=== PATIENT | female | born 1945 | race Caucasian/White ===

== ENCOUNTER → 2016-03-07 | Outpatient (CLI) | payer OTHER ==
[~2016-03-07] MED LIST: ALPR-411 PO; ASPI81TA28 PO; CALC-20 PO; CYCL0.052 OPB; IPRA1AER2 INH; LEVO50TA6 PO; LEVO75TA5 PO; LIDOCAINE HCL 2% 2 ML VIAL (20MG/ML) ONE; LSN40 PO; MIDAZOLAM HCL 1 MG/ML 2ML VIAL ONE; MULT-614 PO; ONDANSETRON INJ 2 MG/ML 2 ML VIAL ONE; PRLSR20 PO; PROPOFOL IV EMULSION 10 MG/ML 20 ML VIAL IV ONE; SYMIN160 INH
--- NOTE | 2016-03-07 08:10 | DIAGNOSTIC IMAGING REPORT ---
GI SERIES W/AIR ROUTINE CLINICAL HISTORY: Chest and abdominal pain. Reflux. COMPARISON STUDY: None FLUOROSCOPY TIME: 2.8 minutes. 22 fluoroscopic spot images were acquired.. FINDINGS: The patient swallowed effervescent granules and barium without difficulty. No esophageal or gastric masses were visualized. No ulcerations are visualized. There is mild prominence of the area gastricae. The duodenal bulb appeared normal. Ligament Treitz was located in the normal anatomical position. Moderate gastroesophageal reflux was demonstrated. IMPRESSION: Gastroesophageal reflux. Otherwise normal study. No masses or ulcerations were visualized. Electronically signed by: Aamir Gandhi M.D. 03/07/2016 8:09 AM Dictated Date/Time: 03/07/2016 8:07 AM
--- NOTE | 2016-03-07 08:58 | DIAGNOSTIC IMAGING REPORT ---
THYROID ULTRASOUND CLINICAL HISTORY: Odynophagia. COMPARISON STUDY: None TECHNIQUE: Sonography of the thyroid gland was performed. FINDINGS: The right thyroid lobe measures 3.9 x 1.2 x 1.2 cm and the left lobe measures 3.7 x 1 x 1.1 cm. The gland is heterogeneous and slightly small. A 5 mm echogenic right lobe nodule is present. IMPRESSION: 1. 5 mm echogenic right lobe nodule. This does not meet criteria for biopsy. 2. Small heterogeneous thyroid gland. Electronically signed by: Mike Rios M.D. 03/07/2016 8:56 AM Dictated Date/Time: 03/07/2016 8:54 AM
== END | disposition home or self-care (01) ==
LOC: C.RAD 07:28
PROVIDERS: ATTEND Internal Medicine
DX: R13.10 Dysphagia, unspecified (principal); K21.9 Gastro-esophageal reflux disease without esophagitis; E04.1 Nontoxic single thyroid nodule

== ENCOUNTER → 2016-03-28 | Day surgery (SDC) | payer OTHER ==
[2016-03-27 08:50] VITALS: BMI 19.0
[~2016-03-28] VITALS: Ht 160 cm; Wt 50.9 kg
[~2016-03-28] MED LIST changes: -LIDOCAINE HCL 2% 2 ML VIAL (20MG/ML) ONE; -MIDAZOLAM HCL 1 MG/ML 2ML VIAL ONE; -ONDANSETRON INJ 2 MG/ML 2 ML VIAL ONE; -PROPOFOL IV EMULSION 10 MG/ML 20 ML VIAL IV ONE; +SODIUM CHLORIDE 0.9% 500ML 500 ML IV ONE
[2016-03-28 10:25] VITALS: Ht 160 cm; Wt 50.9 kg
--- NOTE | 2016-03-28 11:02 | Endo History and Physical ---
History & Physical Date of Service: Mar 28, 2016. Chief Complaint: DYSPAGIA, HX OF ESOPHAGEAL REFUX Referring Physician: DR. JATIN BOLES History of Present Illness 70 yo CF who presents for EGD secondary to dysphagia and history of GERD. Past Medical History Arthritis, Pacemaker, Asthma, Pulmonary Emboli, Anxiety, Hypertension, COPD, Thyroid Disease Past Surgical History Hx Cardiac Surgery: No Hx Internal Defibrillator: No Hx Pacemaker: Yes ([facility] - 2009 AND BATTERIES REPLACED 09/2015) Hx Abdominal Surgery: No Hx of Implantable Prosthesis: No Hx Post-Op Nausea and Vomiting: No Hx Cancer Surgery: No Hx Thoracic Surgery: No Hx Orthopedic: Yes ([facility]) Hx Urinary Tract Surgery: No Family History None Social History Smoking Status: Never Smoker Hx Substance Use: No Hx Alcohol Use: No Allergies Coded Allergies: Adhesives (Verified Allergy, Unknown, RASH, 03/27/16) Latex1 -Allergic Contact Dermititis (Verified Allergy, Unknown, ITCHING, ) Penicillins (Verified Allergy, Unknown, UNKNOWN - HAPPENED A CHILD, 03/27) Current Medications Reported Home Medications Medications Dose Route/Sig Max Daily Dose Days Date Category Prilosec (Omeprazole) 20 Mg Capcr 20 Mg PO BID 03/27/16 Reported Levothyroxine Sodium 50 Mcg Tab 1 Tab PO Q2D 03/27/16 Reported Lisinopril 40 Mg Tab 40 Mg PO QAM 08/09/15 Reported Combivent Respimat (Ipratropium-Albuterol) 1 Aer Aer 1 Puff INH QID PRN 08/09/15 Reported Symbicort 160/4.5 Inhaler (Budesonide/Formoterol Fumarate) 120 Puffs/ Aero 1 Puff INH BID 08/09/15 Reported Alprazolam 0.5 Mg Tab 0.5 Mg PO HS 08/09/15 Reported Restasis (Cyclosporine (Ophth)) 0.05 % Emu 1 Drop OPB HS 08/09/15 Reported Centrum Silver Ultra Wome (Multiple Vitamins W/ Minerals) 1 Tab Tab 1 Tab PO QAM 03/22/15 Reported Calcium 600 + D (Calcium Carbonate-Vitamin D) 1 Tab Tab 1 Tab PO QAM 03/22/15 Reported Aspirin Ec (Aspirin) 81 Mg Tab 81 Mg PO QAM 03/22/15 Reported Levothyroxine Sodium 75 Mcg Tab 75 Mcg PO Q2D 03/22/15 Reported Vital Signs Weight (Kilograms): 50.91 Height (Feet): 5 Height (Inches): 3 Date Time Temp Pulse Resp B/P Pulse Ox O2 Delivery O2 Flow Rate FiO2 03/28/16 10:36 36.4 62 20 166/68 Room Air Physical Exam General Appearance: WD/WN, no apparent distress Respiratory/Chest: Auscultation: breath sounds normal Cardiovascular: Heart Auscultation: RRR Abdomen: Bowel Sounds: normal Inspection & Palpation: soft, non-distended, no tenderness, guarding & rebound Assessment and Plan Assessment: 70 yo CF who presents for EGD secondary to dysphagia and history of GERD. Plan: Proceed with EGD.
--- NOTE | 2016-03-28 11:54 | GI REPORT ---
Procedure Date: 03/28/2016 11:02 AM Procedure: Upper GI endoscopy Indications: Dysphagia, Gastro-esophageal reflux disease Medicines: Monitored Anesthesia Care Complications: No immediate complications. Estimated Blood Loss: Estimated blood loss: none. Procedure: Pre-Anesthesia Assessment: - Prior to the procedure, a History and Physical was performed, and patient medications and allergies were reviewed. The patient's tolerance of previous anesthesia was also reviewed. The risks and benefits of the procedure and the sedation options and risks were discussed with the patient. All questions were answered, and informed consent was obtained. Prior Anticoagulants: The patient has taken aspirin, last dose was day of procedure. ASA Grade Assessment: III - A patient with severe systemic disease. After reviewing the risks and benefits, the patient was deemed in satisfactory condition to undergo the procedure. After obtaining informed consent, the endoscope was passed under direct vision. Throughout the procedure, the patient's blood pressure, pulse, and oxygen saturations were monitored continuously. The scope was introduced through the mouth, and advanced to the second part of duodenum. The upper GI endoscopy was accomplished without difficulty. The patient tolerated the procedure well. Findings: No endoscopic abnormality was evident in the esophagus to explain the patient's complaint of dysphagia. The stomach was normal. The examined duodenum was normal. Impression: - No endoscopic esophageal abnormality to explain patient's dysphagia. - Normal stomach. - Normal examined duodenum. - No specimens collected. Recommendation: - Resume previous diet. - Continue present medications. - Perform routine esophageal manometry at appointment to be scheduled. - Return to GI clinic as previously scheduled. Jules Gusman DO 03/28/2016 11:54:12 AM This report has been signed electronically. Note Initiated On: 03/28/2016 11:02 AM I attest to the content of the Intraoperative Record and orders documented therein, exceptions below
--- NOTE | 2016-03-28 11:59 | Discharge Instructions ---
Endoscopy Patient Instructions Date / Procedure(s) Performed Mar 28, 2016. EGD Allergy Information Coded Allergies: Adhesives (Verified Allergy, Unknown, RASH, 03/28/16) Latex1 -Allergic Contact Dermititis (Verified Allergy, Unknown, ITCHING, ) Penicillins (Verified Allergy, Unknown, UNKNOWN - HAPPENED A CHILD, 03/28) Discharge Date / Findings Mar 28, 2016. Normal EGD Medication Instructions Stopped Medication(s): vitamins OK to resume all medications today as prescribed Reported Home Medications Medications Dose Route/Sig Max Daily Dose Days Date Category Prilosec (Omeprazole) 20 Mg Capcr 20 Mg PO BID 03/27/16 Reported Levothyroxine Sodium 50 Mcg Tab 1 Tab PO Q2D 03/27/16 Reported Lisinopril 40 Mg Tab 40 Mg PO QAM 08/09/15 Reported Combivent Respimat (Ipratropium-Albuterol) 1 Aer Aer 1 Puff INH QID PRN 08/09/15 Reported Symbicort 160/4.5 Inhaler (Budesonide/Formoterol Fumarate) 120 Puffs/ Aero 1 Puff INH BID 08/09/15 Reported Alprazolam 0.5 Mg Tab 0.5 Mg PO HS 08/09/15 Reported Restasis (Cyclosporine (Ophth)) 0.05 % Emu 1 Drop OPB HS 08/09/15 Reported Centrum Silver Ultra Wome (Multiple Vitamins W/ Minerals) 1 Tab Tab 1 Tab PO QAM 03/22/15 Reported Calcium 600 + D (Calcium Carbonate-Vitamin D) 1 Tab Tab 1 Tab PO QAM 03/22/15 Reported Aspirin Ec (Aspirin) 81 Mg Tab 81 Mg PO QAM 03/22/15 Reported Levothyroxine Sodium 75 Mcg Tab 75 Mcg PO Q2D 03/22/15 Reported Provider Instructions Activity Restrictions - No exercising or heavy lifting for 24 hours. - Do not drink alcohol the day of the procedure. - Do not drive a car or operate machinery until the day after the procedure. - Do not make any important decisions or sign important papers in 24 hours after the procedure. Following Day: - Return to full activity which may include returning to work/school. Diet Start your diet with liquids and light foods (jello, soup, juice, toast). Then eat your usual diet if not nauseated. Treatment For Common After Affects For mild abdominal pain, bloating, or excessive gas: - Rest - Eat lightly - Lie on right side Contact our office if you wish to proceed with esophageal manometry testing. Follow-Up Information Follow-up with DR. JATIN BOLES as scheduled Anesthesia Information What You Should Know You have had a procedure that required some medicine to reduce anxiety and discomfort. This treatment is called moderate sedation. After receiving the treatment, you may be sleepy, but you will be able to breathe on your own. The effects of the treatment may last for several hours. Follow these instructions along with Activity/Diet recommendations noted above: * Do NOT do anything where dizziness or clumsiness would be dangerous. * Rest quietly at home today, then you can be up and about tomorrow. * Have a responsible person stay with you the rest of today. * You may have had an I.V. today. If so, you may take the dressing off later today. Recommendations Call your doctor if: * Trouble breathing * Continuous vomiting for more than 24 hours * Temperature above 101 degrees * Severe abdominal pain or bloating * Pain not relieved by pain medicine ordered * There is increased drainage or redness from any incision * A large amount of rectal bleeding greater than 2-3 tablespoons. (If you had a polyp/s removed or have hemorrhoids, a small amount of blood - from the rectum is to be expected.) * You have any unanswered questions or concerns. IN THE EVENT OF A SERIOUS EMERGENCY, GO TO THE NEAREST EMERGENCY ROOM Your discharge instructions were prepared by provider Jules Gusman. Patient Instructions Signature Page Tasha Dia Patient (or Guardian) Signature/Date: I have read and understand the instructions given to me by my caregivers. Caregiver/RN/Doctor Signature/Date: The above-named patient and/or guardian has received patient instructions on this date. + Original Patient Signature Page (only) stays with chart. Please make copy for patient.
[2016-03-28 12:10] VITALS: BP 119/70; PULSE 74; O2SAT 98
--- NOTE | 2016-03-28 14:04 | Anesthesiology Progress Note ---
Anesthesia Post Op Note Date & Time Mar 28, 2016 at 14:04 Vital Signs Pain Intensity: 0 Vital Signs Past 12 Hours Date Time Temp Pulse Resp B/P Pulse Ox O2 Delivery O2 Flow Rate FiO2 03/28/16 12:10 74 16 119/70 98 Room Air 03/28/16 11:50 74 16 128/68 99 Room Air 03/28/16 11:35 72 16 128/65 99 Room Air 03/28/16 11:20 16 105/51 96 Room Air 03/28/16 10:36 36.4 62 20 166/68 Room Air Notes Mental Status: alert / awake / arousable Pt Amnestic to Procedure: Yes Nausea / Vomiting: adequately controlled Pain: adequately controlled Airway Patency, RR, SpO2: stable & adequate BP & HR: stable & adequate Hydration State: stable & adequate Anesthetic Complications: no major complications apparent
== END | disposition home or self-care (01) ==
LOC: C.GI 10:09
PROVIDERS: ATTEND Internal Medicine
DX: R13.10 Dysphagia, unspecified (principal); K21.9 Gastro-esophageal reflux disease without esophagitis; J44.9 Chronic obstructive pulmonary disease, unspecified; I10 Essential (primary) hypertension; Z95.0 Presence of cardiac pacemaker; E07.9 Disorder of thyroid, unspecified; Z86.711 Personal history of pulmonary embolism

== ENCOUNTER → 2016-04-09 | Outpatient (CLI) | payer OTHER ==
[~2016-04-09] MED LIST changes: -SODIUM CHLORIDE 0.9% 500ML 500 ML IV ONE
== END | disposition home or self-care (01) ==
LOC: C.LABPBG 08:24
PROVIDERS: ATTEND Internal Medicine
DX: E03.9 Hypothyroidism, unspecified (principal); Z11.59 Encounter for screening for other viral diseases

== ENCOUNTER → 2016-08-20 | Outpatient (CLI) | payer OTHER ==
[2016-08-20 12:18] LABS: BASO % 0.6 %; BASO ABS # 0.03 K/uL (0-0.2); COMPLETE YES; HEMATOCRIT 40.7 % (37-47); LYMPH % 25.1 %; LYMPH ABS # 1.32 K/uL (1.2-3.4); MEAN CELL VOLUME 98.1 fL (80-100); MEAN CORPUSCULAR HEMOGLOBIN 32.5 pg (25-34); MEAN CORPUSCULAR HGB CONC 33.2 g/dl (32-36); MONO % 8.2 %; NEUT % 59.1 %; PLATELET COUNT 179 K/uL (130-400); RED BLOOD COUNT 4.15 M/uL (4.2-5.4); WHITE BLOOD COUNT 5.25 K/uL (4.8-10.8)
[2016-08-20 13:14] LABS: ALT/SGPT 27 U/L (12-78); AST/SGOT 29 U/L (15-37); BLOOD UREA NITROGEN 18 mg/dl (7-18); BUN/CREATININE RATIO 23.4 (10-20); CALCIUM 9.8 mg/dl (8.5-10.1); CARBON DIOXIDE 31 mmol/L (21-32); CHLORIDE 105 mmol/L (98-107); CREATININE 0.77 mg/dl (0.60-1.20); GLUCOSE 75 mg/dl (70-99); POTASSIUM 3.8 mmol/L (3.5-5.1); SODIUM 140 mmol/L (136-145)
[2016-08-20 13:24] LABS: ALB/GLOB RATIO 1.4 (0.9-2); ALKALINE PHOSPHATASE 73 U/L (45-117)
[2016-08-20 13:55] LABS: LYME DISEASE AB IGG NEG (NEG); LYME DISEASE AB IGM NEG (NEG)
--- NOTE | 2016-08-28 09:01 | CODING QUERY MEDICAL NECESSITY ---
CQSUPPORTING DIAGNOSIS NEEDED A supporting diagnosis is required for the test/procedure performed on this patient in order for us to be reimbursed by the patient's insurance. Please provide a supporting diagnosis for the following test/procedure listed below next to the test name along with your signature. *If there is no additional diagnosis for this patient that would support the following test/procedure please document that below next to the test/procedure. Test(s)/Procedure(s) that require a supporting diagnosis: DOS 08/20/16 VITAMIN D TEST BLOOD COUNT TEST THYROID TEST Provider Signature: Date: Thank you Paula Jacob Health Information Management Once completed, please kindly fax back to [phone] For questions please call [phone]
== END | disposition home or self-care (01) ==
LOC: C.LABPBG 09:01
PROVIDERS: ATTEND Internal Medicine
DX: Z95.0 Presence of cardiac pacemaker (principal); E03.9 Hypothyroidism, unspecified; R10.10 Upper abdominal pain, unspecified; Z13.21 Encounter for screening for nutritional disorder

== ENCOUNTER → 2016-11-13 | Outpatient (CLI) | payer OTHER ==
[2016-11-13 12:14] LABS: BLOOD UREA NITROGEN 12 mg/dl (7-18); BUN/CREATININE RATIO 15.8 (10-20); CALCIUM 9.9 mg/dl (8.5-10.1); CARBON DIOXIDE 27 mmol/L (21-32); CHLORIDE 106 mmol/L (98-107); CREATININE 0.73 mg/dl (0.60-1.20); GLUCOSE 80 mg/dl (70-99); POTASSIUM 4.1 mmol/L (3.5-5.1); SODIUM 141 mmol/L (136-145)
[2016-11-13 12:17] LABS: BASO % 0.5 %; BASO ABS # 0.03 K/uL (0-0.2); COMPLETE YES; EOS % 5.7 %; HEMATOCRIT 38.9 % (37-47); IG% 0.2 %; LYMPH % 17.7 %; MEAN CELL VOLUME 97.3 fL (80-100); MEAN CORPUSCULAR HEMOGLOBIN 32.8 pg (25-34); MEAN CORPUSCULAR HGB CONC 33.7 g/dl (32-36); MEAN PLATELET VOLUME 10.9 fL (7.4-10.4); MONO % 7.3 %; NEUT % 68.6 %; PLATELET COUNT 180 K/uL (130-400); WHITE BLOOD COUNT 5.64 K/uL (4.8-10.8)
[2016-11-13 20:12] LABS: LYME DISEASE AB IGG NEG (NEG); LYME DISEASE AB IGM NEG (NEG)
== END | disposition home or self-care (01) ==
LOC: C.LABPBG 10:32
PROVIDERS: ATTEND Family Medicine
DX: R21 Rash and other nonspecific skin eruption (principal); I10 Essential (primary) hypertension

== ENCOUNTER → 2017-03-05 | Outpatient (CLI) | payer OTHER | END | disposition home or self-care (01) | LOC: C.LABSPEC 13:31 | PROVIDERS: ATTEND Family Medicine | DX: R10.9 Unspecified abdominal pain (principal) ==

== ENCOUNTER → 2017-04-01 | Outpatient (CLI) | payer OTHER ==
[2017-04-01 17:50] LABS: BASO % 0.6 %; BASO ABS # 0.03 K/uL (0-0.2); EOS ABS # 0.28 K/uL (0-0.5); HEMATOCRIT 40.2 % (37-47); HEMOGLOBIN 13.2 g/dL (12.0-16.0); LYMPH % 24.8 %; LYMPH ABS # 1.15 K/uL (1.2-3.4); MEAN CELL VOLUME 99.3 fL (80-100); MEAN CORPUSCULAR HEMOGLOBIN 32.6 pg (25-34); MEAN CORPUSCULAR HGB CONC 32.8 g/dl (32-36); MEAN PLATELET VOLUME 11.1 fL (7.4-10.4); MONO % 8.9 %; MONO ABS # 0.41 K/uL (0.11-0.59); NEUT % 59.7 %; NEUT ABS # 2.76 K/uL (1.4-6.5); PLATELET COUNT 174 K/uL (130-400); RED CELL DISTRIBUTION WIDTH CV 12.6 % (11.5-14.5); RED CELL DISTRIBUTION WIDTH SD 46.1 fL (36.4-46.3); WHITE BLOOD COUNT 4.63 K/uL (4.8-10.8)
[2017-04-01 18:03] LABS: ALBUMIN 3.9 gm/dl (3.4-5.0); ALT/SGPT 30 U/L (12-78); AST/SGOT 27 U/L (15-37); BLOOD UREA NITROGEN 19 mg/dl (7-18); CALCIUM 9.3 mg/dl (8.5-10.1); CARBON DIOXIDE 28 mmol/L (21-32); CREATININE 0.74 mg/dl (0.60-1.20); GLUCOSE 88 mg/dl (70-99); POTASSIUM 3.8 mmol/L (3.5-5.1); SODIUM 141 mmol/L (136-145)
[2017-04-01 18:14] LABS: ALKALINE PHOSPHATASE 77 U/L (45-117); TOTAL PROTEIN 7.1 gm/dl (6.4-8.2)
== END | disposition home or self-care (01) ==
LOC: C.LABPBG 12:02
PROVIDERS: ATTEND Internal Medicine
DX: I49.5 Sick sinus syndrome (principal); I10 Essential (primary) hypertension; E03.9 Hypothyroidism, unspecified; J45.909 Unspecified asthma, uncomplicated; M79.1 Myalgia

== ENCOUNTER → 2017-07-04 | Outpatient (CLI) | payer OTHER ==
--- NOTE | 2017-07-04 12:27 | DIAGNOSTIC IMAGING REPORT ---
CERVICAL SPINE 2 OR 3 VIEWS CLINICAL HISTORY: 71 years-old Female presenting with M54.2 Neck [id number], left neck pain. TECHNIQUE: Frontal, lateral, and open-mouth odontoid views of the cervical spine were obtained. COMPARISON: None. FINDINGS: Normal cervical lordosis. Vertebral bodies maintain normal height and alignment. The C7 vertebral body is fully visualized. Mild intervertebral disc height loss at C5-6, where there is the greatest degree of degenerative change. A disc osteophyte complex at this level results in posterior bony spurring mildly narrowing the spinal canal. No scoliosis. No radiographic evidence of a compression deformity or subluxation. Normal predental interval. Lateral masses of C1 articulate normally with C2. No prevertebral soft tissue swelling. Partially visualized cardiac leads. Lung apices clear. The patient is edentulous. IMPRESSION: 1. No radiographic evidence of acute osseous injury. 2. Mild degenerative changes. Electronically signed by: Allen Bartlett M.D. 07/04/2017 12:26 PM Dictated Date/Time: 07/04/2017 12:24 PM
== END | disposition home or self-care (01) ==
LOC: C.RAD 11:42
PROVIDERS: ATTEND Family Medicine
DX: M54.2 Cervicalgia (principal)

== ENCOUNTER 2023-04-02 22:13 | Inpatient (IN) ==
--- NOTE | 2023-04-02 23:05 | Emergency Department Note ---
Impression & Plan Pneumonia DC ED Provider Note HPI: History obtained from patient The patient is a 77-year-old female with history of paroxysmal atrial fibrillation, sick sinus syndrome status post pacemaker placement, COPD, presents to the emergency department after mechanical fall. Patient states this evening she was trying to get up from her chair when she was watching TV at home and she fell while she was trying to get up. Patient states she fell on her buttocks. Patient states she was unable to get up off the floor secondary to her history of arthritis and knee pain and therefore her brother contacted EMS and the patient was transported to the ED. Patient states earlier tonight she did mention to EMS that she also had some chest pain. Patient states she does not currently have any chest pain. Patient states she has recently had some generalized weakness and a sore throat over the past 2 to 3 weeks and was concerned that she might have influenza. On arrival here to the ED the patient is otherwise hemodynamically stable, she is in no acute distress on my initial assessment. ROS: - Per HPI Differential Diagnosis: Mechanical fall, sacral contusion, sacral fracture, hip fracture, pelvic fracture, acute coronary syndrome, pneumonia, viral upper respiratory infection, amongst other potential pathologies. *Outpatient medications and allergy history reviewed. PE: General: Alert, frail-appearing, no acute distress HEENT: Normocephalic, trachea midline Eyes: Extraocular eye movement is intact, no scleral erythema Pulmonary: Clear to auscultation bilaterally, no wheezing Cardio: Regular rate and rhythm GI: Abdomen is soft to palpation : No suprapubic tenderness MSK: No evidence of trauma or malformation of the extremities, no edema Skin: No evidence of rash Neuro: Alert, no focal deficits Psychiatric: Cooperative INDEPENDENT INTERPRETATIONS: conveyor monitor: (As interpreted by myself): - An order was placed for continuous cardiac monitoring - Patient was noted to be in sinus rhythm with a rate of 80 EKG: (As interpreted by myself): Rate: 84 Rhythm: Sinus rhythm Intervals: Within normal limits ST changes: No ST elevation Time: 2219 Chest x-ray: (As interpreted by myself): Right lower lobe infiltrate Interventions provided in ED: -IV cefepime, IV azithromycin Medical Decision Making: IV was established and lab work obtained, patient was placed on director of cardiac rehabilitation. Lab work shows a leukocytosis at 17.08, hemoglobin is stable at 11.9, platelet count is normal, CMP does not show any critical findings, mild hyponatremia at 133, troponin is slightly elevated at 14.2. EKG per my interpretation does not show any evidence of any acute ischemic changes. Viral panel testing including COVID, influenza, and RSV are all negative. Chest x-ray per my interpretation shows a right lower lobe pneumonia. X-ray of the bilateral hips does not show any evidence of obvious pelvic fracture or hip fracture per my interpretation. On my reassessment the patient is hemodynamically stable, states she has had weakness recently and had a fall today. Given her significant leukocytosis, and finding of large right lower lobe pneumonia on chest x-ray, I do feel she would benefit from admission for initiation of IV antibiotics. Given this blood cultures were drawn, patient was started on cefepime and azithromycin. I did discuss the patient's presentation with the on-call hospitalist, Dr. Walker, and the patient was placed for admission in stable condition. Consultants/Discussions held with other healthcare providers: -Hospitalist, Dr. Walker Disposition discussion held by myself with: -Patient and patient's niece at the bedside Diagnosis: 1. Pneumonia, right lower lobe, acute 2. Leukocytosis, acute 3. Generalized weakness, acute 4. Mechanical fall, acute 5. Chest pain, acute, nonspecific 6. Elevated high-sensitivity troponin level Disposition: Admission Magdiel Collins DO Emergency Medicine Past Med/Surg History Medical History (Updated 04/03/23 @ 01:32 by Magdiel Collins DO) Osteoporosis GERD (gastroesophageal reflux disease) Celiac disease History of pulmonary embolus (PE) post PPM placement in 2009, treated coumadin x 12 mos Paroxysmal atrial fibrillation by pacer check Sick sinus syndrome Kyphosis of thoracic region Hypothyroidism Hypertension Chronic insomnia Asthma, severe persistent Anxiety Allergic rhinitis COPD (chronic obstructive pulmonary disease) Surgical History S/P bronchoscopy with biopsy S/P nasal surgery History of left hip replacement History of esophagogastroduodenoscopy (EGD) History of pacemaker (2009) 2009 History of bilateral carotid endarterectomy Family History Mother Myocardial infarction Sister Myocardial infarction Family/Other Breast cancer Denies family history of Ovarian cancer Prostate cancer Lung cancer Colorectal cancer Social History (Reviewed 03/25/23 @ 09:26 by DIAMOND Piedra Smoking Status: Never smoker Second Hand Exposure: No; Do You Dip or Chew Tobacco: No; Hx Alcohol Use: No Hx Substance Use: No Preferred Language: Afghan Communication Ability: Effective Visual Impairment: Limited Hearing Ability: Hard of Hearing Opener [employer] Required: No Beliefs That Will Affect Care: None marital status: single Current Living Situation: Family Current Living Situation Comment: Brother current occupational status: retired How many Children do You have: 0 Feels Safe at Home: Yes Childhood Exposure to Second-Hand Smoke: Yes Diet: regular Diet Comment: regular caffeine: Yes (tea) during the past year weight has: remained stable Dental Care, Regularly: Yes Physical Activity Frequency: Does not Exercise Seatbelt Use: always Sunscreen Use: Yes Allergies Allergies Allergy/AdvReac Type Severity Reaction Status Date / Time adhesive Allergy Intermediate RASH Verified 04/02/23 23:16 latex Allergy Intermediate ITCHING Verified 04/02/23 23:16 alprazolam Allergy Unknown CAN'T Verified 04/02/23 23:16 REMEMBER Cephalosporins Allergy Unknown CAN'T Verified 04/02/23 23:16 REMEMBER ciprofloxacin Allergy Unknown CAN'T Verified 04/02/23 23:16 REMEMBER Penicillins Allergy Unknown UNKNOWN - Verified 04/02/23 23:16 HAPPENED A CHILD sulfamethoxazole Allergy Unknown CAN'T Verified 04/02/23 23:16 [From Bactrim] REMEMBER trimethoprim [From Bactrim] Allergy Unknown CAN'T Verified 04/02/23 23:16 REMEMBER metoprolol AdvReac Intermediate BRADYCARDIA Verified 04/02/23 23:16 Home Meds Home Medications Medication Instructions Recorded Confirmed aspirin 81 mg tablet,delayed 81 mg PO QAM 10/12/18 04/02/23 release tiotropium bromide 18 mcg capsule 1 cap inhalation DAILY 02/21/22 04/02/23 with inhalation device (Spiriva with HandiHaler) calcium carbonate 600 mg calcium 600 mg PO Q OTHER DAY 07/06/22 04/02/23 (1,500 mg) tablet [id number] 8 mg-folic 400 1 tab PO Q OTHER DAY 07/06/22 04/02/23 mcg-K 50 mcg-lutein 300 mcg tablet (Centrum Silver Women) brimonidine 0.15 % eye drops 1 drp ophthalmic (eye) TID 02/07/23 04/02/23 fluticasone furoate 100 1 inh inhalation DAILY 02/07/23 04/02/23 mcg-vilanterol 25 mcg/dose inhalation powder (Breo Ellipta) losartan 100 mg tablet 100 mg PO DAILY 02/07/23 04/02/23 levothyroxine 50 mcg tablet 50 mcg PO Q OTHER DAY 04/02/23 04/02/23 levothyroxine 75 mcg tablet 75 mcg PO Q OTHER DAY 04/02/23 04/02/23 Previous Rx's Medication Instructions Recorded posture cane #1 ea 09/27/20 cetirizine 10 mg tablet 10 mg PO DAILY #90 tabs 12/26/22 fluticasone propionate 50 2 spray intranasal DAILY #48 grams 12/26/22 mcg/actuation nasal spray,suspension (Flonase Allergy Relief) albuterol sulfate 90 mcg/actuation See Rx Instructions inhalation 01/08/23 aerosol inhaler (Ventolin HFA) .COMPLEX PRN shortness of breath or wheezing #18 grams betamethasone dipropionate 0.05 % 1 applic topical BID #15 grams 03/25/23 topical cream Results & Data (ED) Vital Signs Vital Signs - 24 hr 04/02/23 21:59 04/02/23 21:59 04/02/23 21:59 Temperature 37.6 C H Temperature Source Oral Pulse Rate 86 Pulse Rate from SpO2 Sensor Respiratory Rate 21 Respiratory Effort / Characteristics Non-Labored Non-Labored Respiratory Depth Normal Normal Respiratory Pattern Blood Pressure 153/72 H Blood Pressure Mean 99 Pulse Oximetry 93 Oxygen Delivery Method Room Air Room Air Sepsis Recent Fever Within 48 Hours No Sepsis New/Unexplained Change in Mental Status No Sepsis Action Taken by Nursing No Action Required 04/02/23 22:22 04/02/23 22:30 04/02/23 22:30 Temperature Temperature Source Pulse Rate 83 79 Pulse Rate from SpO2 Sensor 83 81 Respiratory Rate 20 21 Respiratory Effort / Characteristics Respiratory Depth Respiratory Pattern Blood Pressure 141/68 H Blood Pressure Mean 114 Pulse Oximetry 93 93 Oxygen Delivery Method Sepsis Recent Fever Within 48 Hours Sepsis New/Unexplained Change in Mental Status Sepsis Action Taken by Nursing 04/02/23 22:38 04/02/23 22:40 04/02/23 22:50 Temperature Temperature Source Pulse Rate 89 80 78 Pulse Rate from SpO2 Sensor 79 78 Respiratory Rate 24 20 Respiratory Effort / Characteristics Respiratory Depth Respiratory Pattern Blood Pressure Blood Pressure Mean Pulse Oximetry 93 92 Oxygen Delivery Method Sepsis Recent Fever Within 48 Hours Sepsis New/Unexplained Change in Mental Status Sepsis Action Taken by Nursing 04/02/23 23:00 04/02/23 23:00 04/02/23 23:10 Temperature Temperature Source Pulse Rate 81 79 Pulse Rate from SpO2 Sensor 79 Respiratory Rate 22 21 Respiratory Effort / Characteristics Respiratory Depth Respiratory Pattern Blood Pressure 142/73 H Blood Pressure Mean 112 Pulse Oximetry 92 Oxygen Delivery Method Sepsis Recent Fever Within 48 Hours Sepsis New/Unexplained Change in Mental Status Sepsis Action Taken by Nursing 04/02/23 23:12 04/02/23 23:20 04/02/23 23:30 Temperature Temperature Source Pulse Rate 80 82 Pulse Rate from SpO2 Sensor 81 78 Respiratory Rate 23 23 Respiratory Effort / Characteristics Respiratory Depth Respiratory Pattern Blood Pressure Blood Pressure Mean Pulse Oximetry 93 92 91 Oxygen Delivery Method Room Air Sepsis Recent Fever Within 48 Hours Sepsis New/Unexplained Change in Mental Status Sepsis Action Taken by Nursing 04/02/23 23:30 04/02/23 23:40 04/02/23 23:50 Temperature Temperature Source Pulse Rate 81 76 Pulse Rate from SpO2 Sensor 82 77 Respiratory Rate 20 22 Respiratory Effort / Characteristics Respiratory Depth Respiratory Pattern Blood Pressure 133/62 Blood Pressure Mean 86 Pulse Oximetry 91 92 Oxygen Delivery Method Sepsis Recent Fever Within 48 Hours Sepsis New/Unexplained Change in Mental Status Sepsis Action Taken by Nursing 04/02/23 23:59 04/03/23 00:00 04/03/23 00:00 Temperature Temperature Source Pulse Rate 84 Pulse Rate from SpO2 Sensor 81 Respiratory Rate 21 Respiratory Effort / Characteristics Non-Labored Respiratory Depth Normal Respiratory Pattern Regular Blood Pressure 147/71 H Blood Pressure Mean 100 Pulse Oximetry 92 Oxygen Delivery Method Room Air Sepsis Recent Fever Within 48 Hours Sepsis New/Unexplained Change in Mental Status Sepsis Action Taken by Nursing 04/03/23 00:10 04/03/23 00:20 Temperature Temperature Source Pulse Rate 93 H 79 Pulse Rate from SpO2 Sensor 83 77 Respiratory Rate 21 35 H Respiratory Effort / Characteristics Respiratory Depth Respiratory Pattern Blood Pressure Blood Pressure Mean Pulse Oximetry 93 94 Oxygen Delivery Method Sepsis Recent Fever Within 48 Hours Sepsis New/Unexplained Change in Mental Status Sepsis Action Taken by Nursing Laboratory Data 04/02/23 23:30 04/02/23 23:30 Lab Results 04/02/23 04/02/23 Range/Units 23:00 23:30 WBC 17.08 H (4.8-10.8) K/ul RBC 3.66 L (4.20-5.40) M/uL Hgb 11.9 L (12.0-16.0) g/dl Hct 34.8 L (37.0-47.0) % MCV 95.1 (80.0-100.0) fL MCH 32.5 (25.0-34.0) pg MCHC 34.2 (32.0-36.0) g/dL RDW Std Deviation 41.7 (36.4-46.3) fL RDW Coeff of Shikha 11.9 (11.5-14.5) % Plt Count 183 (130-400) K/uL MPV 10.5 (9.4-12.4) fL Immature Gran % (Auto) 1.1 % Neut % (Auto) 89.0 % Lymph % (Auto) 2.9 % Graham % (Auto) 6.8 % Eos % (Auto) 0.0 % Baso % (Auto) 0.2 % Neut # (Auto) 15.22 H (1.40-6.50) K/uL Lymph # (Auto) 0.49 L (1.20-3.40) K/uL Graham # (Auto) 1.16 H (0.11-0.59) K/uL Eos # (Auto) 0.00 (0.00-0.50) K/uL Baso # (Auto) 0.03 (0.00-0.20) K/uL Immature Gran # (Auto) 0.18 (0.01-0.20) K/uL PT 12.5 H (9.0-12.0) Seconds INR 1.2 H (0.9-1.1) Sodium 133 L (136-145) mmol/L Potassium 4.0 (3.5-5.1) mmol/L Chloride 100 (98-107) mmol/L Carbon Dioxide 25 (21-32) mmol/L Anion Gap 8 (3-11) BUN 19 (6-23) mg/dl Creatinine 0.76 (0.6-1.2) mg/dl Est Cr Clr Drug Dosing 43.0 ml/min Est GFR ( Amer) 88.3 ml/min Est GFR (Non-Af Amer) 76.2 ml/min BUN/Creatinine Ratio 25.0 H (10-20) Glucose 140 H (70-99(Fasting)) mg/dl Calcium 9.1 (8.6-10.3) mg/dl Total Bilirubin 1.5 H (0.2-1.0) mg/dl AST 32 (13-39) U/L ALT 28 (7-52) U/L Alkaline Phosphatase 76 (34-104) U/L Troponin I High Sens 14.2 H (0-14) pg/ml Total Protein 6.8 (6.0-8.3) gm/dl Albumin 3.7 (3.4-5.0) gm/dl Globulin 3.1 (2.5-4.0) gm/dl Albumin/Globulin Ratio 1.2 (0.9-2) Lipase 3 L (11-82) U/L SARS-CoV-2 (PCR) NEGATIVE (Negative) Influenza Type A (PCR) Negative (Neg) Influenza Type B (PCR) Negative (Neg) RSV (RT-PCR) Negative (Neg) Administered Medications Azithromycin 500 mg/ Dextrose 255 mls @ 127.5 mls/hr IV NOW STA Stop: 04/03/23 02:32 Last Admin: 04/03/23 01:24 Dose: 127.5 mls/hr Documented By: PAULO Discontinued Medications Cefepime HCl (Maxipime) 2,000 mg in 20 mls @ 5 mls/min IV NOW STA; Protocol Stop: 04/03/23 00:36 Last Admin: 04/03/23 00:45 Dose: 5 mls/min Documented By: MATILDA Discharge Plan Visit Data Chief Complaint: Chest Pain Stated Complaint: Chest Pain x1week ED Provider: Magdiel Collins Discharge Problem: Pneumonia Forms Stand Alone Forms: My [facility] Prescriptions Prescriptions: No Action fluticasone propionate [Flonase Allergy Relief] 50 mcg/actuation spray,suspension 2 spray intranasal DAILY Qty: 48 2RF Rx Instructions: administer into each nostril cetirizine 10 mg tablet 10 mg PO DAILY Qty: 90 1RF albuterol sulfate [Ventolin HFA] 90 mcg/actuation HFA aerosol inhaler See Rx Instructions inhalation .COMPLEX PRN (Reason: shortness of breath or wheezing) Qty: 18 1RF Rx Instructions: 1-2 puffs inhalation 1 puff INH every 4-6 hrs; PRN; (DME) posture cane See Rx Instructions .Route .MEDSUPPLY Qty: 1 0RF Rx Instructions: As directed betamethasone dipropionate 0.05 % cream 1 applic topical BID Qty: 15 1RF Rx Instructions: apply to L palm calcium carbonate 600 mg calcium (1,500 mg) tablet 600 mg PO Q OTHER DAY losartan 100 mg tablet 100 mg PO DAILY brimonidine 0.15 % drops 1 drp ophthalmic (eye) TID fluticasone furoate-vilanterol [Breo Ellipta] 100-25 mcg/dose blister with device 1 inh inhalation DAILY Spiriva with HandiHaler 18 mcg capsule, w/inhalation device 1 cap inhalation DAILY Rx Instructions: puncture 1 cap using device; one dose = 2 inhalations aspirin 81 mg Tablet,Delayed Release (Dr/Ec) 81 mg PO QAM Centrum Silver Women 8 mg iron-400 mcg-300 mcg tablet 1 tab PO Q OTHER DAY levothyroxine 75 mcg tablet 75 mcg PO Q OTHER DAY Rx Instructions: 75 mcg PO QOD; patient rotates with 50 mcg every other day levothyroxine 50 mcg tablet 50 mcg PO Q OTHER DAY Rx Instructions: 50 mcg PO QOD; patient rotates with 75mcg every other day Referrals Referrals: Ginny Loo DO [Primary Care Provider] - Discharge Problem: Pneumonia Qualifiers: Pneumonia type: due to unspecified organism Laterality: right Lung location: l ower lobe of lung Qualified Code(s): J18.9 - Pneumonia, unspecified organism
[2023-04-02 23:52] LABS: Influenza A virus by PCR Negative (Neg); Influenza B virus by PCR Negative (Neg); RSV by PCR Negative (Neg); SARS CoV2 RNA(COVID-19) Ceph NEGATIVE (Negative)
[2023-04-03 00:01] LABS: Basophils # (auto) 0.03 K/uL (0.00-0.20); Basophils % (auto) 0.2 %; Hematocrit (blood only) 34.8 % (37.0-47.0); Hemoglobin 11.9 g/dl (12.0-16.0); Immature Granulocytes # (auto) 0.18 K/uL (0.01-0.20); Immature Granulocytes % (auto) 1.1 %; Lymphocytes # (auto) 0.49 K/uL (1.20-3.40); Lymphocytes % (auto) 2.9 %; Mean Corpuscular Hemoglobin 32.5 pg (25.0-34.0); Mean Corpuscular Hgb Conc 34.2 g/dL (32.0-36.0); Mean Corpuscular Volume 95.1 fL (80.0-100.0); Mean Platelet Volume 10.5 fL (9.4-12.4); Monocytes # (auto) 1.16 K/uL (0.11-0.59); Monocytes % (auto) 6.8 %; Neutrophils # (auto) 15.22 K/uL (1.40-6.50); Platelet Count 183 K/uL (130-400); RDW Coefficient of Variation 11.9 % (11.5-14.5); RDW Standard Deviation 41.7 fL (36.4-46.3); Red Blood Count 3.66 M/uL (4.20-5.40); White Blood Count 17.08 K/ul (4.8-10.8)
[2023-04-03 00:07] LABS: Albumin Globulin Ratio 1.2 (0.9-2); Albumin Level 3.7 gm/dl (3.4-5.0); Bilirubin,Total 1.5 mg/dl (0.2-1.0); Calcium 9.1 mg/dl (8.6-10.3); Est GFR (African American) 88.3 ml/min; Est GFR (Non-African American) 76.2 ml/min; Globulin 3.1 gm/dl (2.5-4.0); Total Protein 6.8 gm/dl (6.0-8.3)
[2023-04-03 00:14] LABS: Troponin I High Sensitivity 14.2 pg/ml (0-14)
[2023-04-03 00:18] LABS: INR 1.2 (0.9-1.1); Prothrombin Time 12.5 Seconds (9.0-12.0)
--- NOTE | 2023-04-03 00:44 | History & Physical Report ---
Date of Service April 03, 2023 Assessment & Plan (1) Pneumonia: Plan: -Patient without any respiratory symptoms of pneumonia. Though patient has been feeling weak which may be result of pneumonia. -Chest x-ray showed a right lower lobe pneumonia. -Leukocytosis seen on CBC. On room air at time of admission. -Given a DuoNeb at time of admission. -Blood cultures pending. -Continue on cefepime and azithromycin. (2) History of pacemaker: Plan: -Noted. Will monitor on telemetry. (3) Paroxysmal atrial fibrillation: Plan: -Not on any anticoagulation. Monitor on telemetry. (4) Sick sinus syndrome: Plan: -Continue home medication. (5) COPD (chronic obstructive pulmonary disease): Plan: -Continue home inhalers. Plan Fluids: None Nutrition: Heart healthy Code status: Full code DVT ppx: Lovenox PT/OT: Consulted Dispo: PCU/telemetry History of Present Illness Chief Complaint: Right lower lobe pneumonia Primary Care Provider: Ginny Loo DO The patient is a 77-year-old female with history of paroxysmal atrial fibrillation, sick sinus syndrome status post pacemaker placement, COPD, presents to the hospital after a mechanical fall. Patient states that she was trying to get up from a chair and that the carpet slipped underneath her and she fell down on her buttocks. Patient states that she had trouble getting up from that position and contacted EMS. Patient also states that she had some sore throat but no cough recently. Talk to niece who was bedside who states that when she found the patient she seemed confused but that has improved since being in the hospital. Patient denies any chest pain at this time though it was mentioned in the EMS that she had some chest pain. Denies any pain throughout her body. Denies any cough or congestion recently. Denies any urinary issues. States that she does have asthma and emergency however which she used prior to coming to the hospital. In the ED: Leukocytosis seen on CBC. Flu, RSV, and COVID negative. Hip and pelvis x-ray taken, chest x-ray showing right lower lobe pneumonia. Allergies Allergy/AdvReac Type Severity Reaction Status Date / Time adhesive Allergy Intermediate RASH Verified 04/02/23 23:16 latex Allergy Intermediate ITCHING Verified 04/02/23 23:16 alprazolam Allergy Unknown CAN'T Verified 04/02/23 23:16 REMEMBER Cephalosporins Allergy Unknown CAN'T Verified 04/02/23 23:16 REMEMBER ciprofloxacin Allergy Unknown CAN'T Verified 04/02/23 23:16 REMEMBER Penicillins Allergy Unknown UNKNOWN - Verified 04/02/23 23:16 HAPPENED A CHILD sulfamethoxazole Allergy Unknown CAN'T Verified 04/02/23 23:16 [From Bactrim] REMEMBER trimethoprim [From Bactrim] Allergy Unknown CAN'T Verified 04/02/23 23:16 REMEMBER metoprolol AdvReac Intermediate BRADYCARDIA Verified 04/02/23 23:16 Home Medications Medication Instructions Recorded Confirmed Type aspirin 81 mg tablet,delayed 81 mg PO QAM 10/12/18 04/02/23 History release posture cane #1 ea 09/27/20 03/25/23 Rx tiotropium bromide 18 mcg capsule 1 cap inhalation DAILY 02/21/22 04/02/23 History with inhalation device (Spiriva with HandiHaler) calcium carbonate 600 mg calcium 600 mg PO Q OTHER DAY 07/06/22 04/02/23 History (1,500 mg) tablet [id number] 8 mg-folic 400 1 tab PO Q OTHER DAY 07/06/22 04/02/23 History mcg-K 50 mcg-lutein 300 mcg tablet (Centrum Silver Women) cetirizine 10 mg tablet 10 mg PO DAILY #90 tabs 12/26/22 04/02/23 Rx fluticasone propionate 50 2 spray intranasal DAILY #48 grams 12/26/22 04/02/23 Rx mcg/actuation nasal spray,suspension (Flonase Allergy Relief) albuterol sulfate 90 mcg/actuation See Rx Instructions inhalation 01/08/23 04/02/23 Rx aerosol inhaler (Ventolin HFA) .COMPLEX PRN shortness of breath or wheezing #18 grams brimonidine 0.15 % eye drops 1 drp ophthalmic (eye) TID 02/07/23 04/02/23 History fluticasone furoate 100 1 inh inhalation DAILY 02/07/23 04/02/23 History mcg-vilanterol 25 mcg/dose inhalation powder (Breo Ellipta) losartan 100 mg tablet 100 mg PO DAILY 02/07/23 04/02/23 History betamethasone dipropionate 0.05 % 1 applic topical BID #15 grams 03/25/23 04/02/23 Rx topical cream levothyroxine 50 mcg tablet 50 mcg PO Q OTHER DAY 04/02/23 04/02/23 History levothyroxine 75 mcg tablet 75 mcg PO Q OTHER DAY 04/02/23 04/02/23 History Past Med/Surg History Medical History (Updated 04/03/23 @ 01:32 by Magdiel Collins DO) Osteoporosis GERD (gastroesophageal reflux disease) Celiac disease History of pulmonary embolus (PE) post PPM placement in 2009, treated coumadin x 12 mos Paroxysmal atrial fibrillation by pacer check Sick sinus syndrome Kyphosis of thoracic region Hypothyroidism Hypertension Chronic insomnia Asthma, severe persistent Anxiety Allergic rhinitis COPD (chronic obstructive pulmonary disease) Surgical History S/P bronchoscopy with biopsy S/P nasal surgery History of left hip replacement History of esophagogastroduodenoscopy (EGD) History of pacemaker (2009) 2009 History of bilateral carotid endarterectomy Family History Mother Myocardial infarction Sister Myocardial infarction Family/Other Breast cancer Denies family history of Ovarian cancer Prostate cancer Lung cancer Colorectal cancer Social History Smoking Status: Never smoker Second Hand Exposure: No; Do You Dip or Chew Tobacco: No; Hx Alcohol Use: No Hx Substance Use: No Preferred Language: Estonian Communication Ability: Effective Visual Impairment: Limited Hearing Ability: Hard of Hearing Scheduling Agent Required: No Beliefs That Will Affect Care: None marital status: single Current Living Situation: Family Current Living Situation Comment: Brother current occupational status: retired How many Children do You have: 0 Feels Safe at Home: Yes Childhood Exposure to Second-Hand Smoke: Yes Diet: regular Diet Comment: regular caffeine: Yes (tea) during the past year weight has: remained stable Dental Care, Regularly: Yes Physical Activity Frequency: Does not Exercise Seatbelt Use: always Sunscreen Use: Yes Review of Systems Review of Systems: All systems reviewed & are unremarkable except as noted in Subjective Physical Exam Physical Exam: Constitutional: Frail, no acute distress HEENT: NCAT, no conjunctival injection CV: regular rhythm, no murmur appreciated, extremities well-perfused, no LE edema Resp: CTABL, no wheezes/rales/rhonchi appreciated, no increased work of breathing GI: soft, nondistended, nontender, BS normoactive MSK: no gross deformities appreciated Skin: warm, dry, no rash appreciated Neuro: alert, oriented, no focal neurologic deficit appreciated Results & Data Results & Data Vital Signs (Past 12 Hours) Vital Signs Temp Pulse Resp BP Pulse Ox O2 Del Method 04/03/23 00:20 79 35 H 94 04/03/23 00:10 93 H 21 93 04/03/23 00:00 147/71 H 04/03/23 00:00 84 21 92 04/02/23 23:59 Room Air 04/02/23 23:50 76 22 92 04/02/23 23:40 81 20 91 04/02/23 23:30 133/62 04/02/23 23:30 82 23 91 04/02/23 23:20 80 23 92 04/02/23 23:12 93 Room Air 04/02/23 23:10 79 21 04/02/23 23:00 142/73 H 04/02/23 23:00 81 22 92 04/02/23 22:50 78 20 92 04/02/23 22:40 80 24 93 04/02/23 22:38 89 04/02/23 22:30 141/68 H 04/02/23 22:30 79 21 93 04/02/23 22:22 83 20 93 04/02/23 21:59 Room Air 04/02/23 21:59 37.6 C H 86 21 153/72 H 93 Room Air Supervising Physician Co-Signing Physician Notes Patient seen and examined, chart reviewed, case discussed with Dr. Henderson and I agree with the assessment and plan as above. Patient with generalized weakness, some chest discomfort. Found to have RLL PNA - febrile, tachycardic and hypoxic. Elevated WBC count. On exam she is ill in appearance Skin- no rash HEENT - MMM, Neck supple Heart - +S1/S2, regular, tachycardic, no m/r/g Lungs - +coarse breath sounds right lower lung field Abd - +BS, soft, NT/ND Ext - warm, well perfused Labs and imaging reviewed Assessment/Plan - 77yo female with RLL PNA -Admit to PCU -Follow cultures -Antibiotic coverage with Cefepime and Azithromycin -Inhalers -Remainder as above Resident Activity Tracking Resident Involvement: Resident Care Provided Care Provided: Adult Hospital Medicine (1) Pneumonia Laterality: right Lung location: lower lobe of lung Pneumonia type: due to unspecified organism Qualified Code(s): J18.9 - Pneumonia, unspecified organism
[2023-04-03] MEDS: CEFEPIME 2,000 MG/20 ML VIAL IV STA (00:45)
[2023-04-03] MEDS: AZITHROMYCIN 500 MG in DEXTROSE 5% 250 ML IV STA (01:24)
[2023-04-03] MEDS ORDERED: ONDANSETRON INJ 2 MG/ML 2 ML VIAL IV PRN (02:06)
[2023-04-03] MEDS ORDERED: ALBUTEROL HFA 8 GM INHALER INH PRN (02:06)
[2023-04-03] MEDS: ALBUTEROL 0.5% NEB SOLN 2.5 MG/0.5 ML VIAL NEB STA (03:37)
--- NOTE | 2023-04-03 04:42 | Billing Data ---
Date of Service April 03, 2023 Coding Level of Care Code 69637 INT INP/OBS CARE
--- NOTE | 2023-04-03 07:21 | XRay Report ---
SINGLE VIEW PELVIS; 2 VIEWS RIGHT HIP; 2 VIEWS LEFT HIP CLINICAL HISTORY: Fall. Bilateral hip pain. FINDINGS: An AP view of the pelvis with AP and frog-leg views of the right and left hip are obtained. No prior studies are available for comparison at the time of dictation. The skeletal structures are osteopenic. There is no radiographic evidence of acute fracture involving the hips or bony pelvis. A left hip arthroplasty is in near anatomic alignment. No periprosthetic lucency is seen. Moderate arth ritic change and joint space narrowing is noted in the right hip. There is degenerative sclerosis of the sacroiliac joints. The overlying soft tissues are within normal limits. Lumbosacral spondylosis i s partially imaged. IMPRESSION: No acute bony abnormality is identified. Electronically signed by: Edward Tejada M.D. 04/03/2023 7:20 AM
[2023-04-03] MEDS: ENOXAPARIN INJ 40 MG/0.4 ML SYR SQ SCH (07:58)
[2023-04-03] MEDS: ASPIRIN 81 MG ECTAB PO SCH (07:59)
[2023-04-03] MEDS: CETIRIZINE HCL 10 MG TABLET PO SCH (07:59)
[2023-04-03] MEDS: CEROVITE ADV FORMULA TAB PO SCH (07:59)
[2023-04-03] MEDS: LEVOTHYROXINE SODIUM 50 MCG TABLET PO SCH (07:59)
[2023-04-03] MEDS: LOSARTAN POTASSIUM 50 MG TAB PO SCH (07:59)
[2023-04-03] MEDS: UMECLIDINIUM BROMIDE 62.5MCG/BLISTER 7 PUFFS/INHALER INH SCH (08:02)
[2023-04-03] MEDS: FLUTICASONE PROPIONATE NA SPR 16 GM BTL SCH (08:02)
[2023-04-03] MEDS: FLUTICASONE/VILANTEROL 100/25MCG 14 PUFFS/INHALER INH SCH (08:02)
--- NOTE | 2023-04-03 08:15 | XRay Report ---
XR chest 1V portable HISTORY: Chest pain, nonspecific COMPARISON: Chest 03/21/2021. FINDINGS: No pneumothorax. The heart remains mildly enlarged. Is left-sided dual-chamber pacemaker. T he left lung is clear. There is a new right lower lobe airspace opacity. Mild interstitial thickening which is likely chronic. No evidence for pulmonary edema. Possible trace right pleural effusion. IMPRESSION: A new right lower lobe airspace opacity. This favors a pneumonia. 1-2 month chest x-ray follow-up rec ommended to ensure resolution ACT 112: Negative or not required by law. Electronically signed by: Saul Baxter M.D. 04/03/2023 8:14 AM
[2023-04-03] MEDS: CEFEPIME 2,000 MG in SYRINGE 0 ML IV SCH (10:55)
[2023-04-03 11:45] LABS: Basophils # (auto) 0.03 K/uL (0.00-0.20); Basophils % (auto) 0.2 %; Eosinophils # (auto) 0.02 K/uL (0.00-0.50); Eosinophils % (auto) 0.1 %; Hematocrit (blood only) 33.5 % (37.0-47.0); Hemoglobin 11.1 g/dl (12.0-16.0); Immature Granulocytes # (auto) 0.14 K/uL (0.01-0.20); Lymphocytes # (auto) 0.66 K/uL (1.20-3.40); Lymphocytes % (auto) 4.6 %; Mean Corpuscular Hemoglobin 32.3 pg (25.0-34.0); Mean Corpuscular Hgb Conc 33.1 g/dL (32.0-36.0); Mean Corpuscular Volume 97.4 fL (80.0-100.0); Mean Platelet Volume 10.3 fL (9.4-12.4); Monocytes # (auto) 1.29 K/uL (0.11-0.59); Neutrophils # (auto) 12.18 K/uL (1.40-6.50); Neutrophils % (auto) 85.1 %; Platelet Count 185 K/uL (130-400); RDW Coefficient of Variation 12.2 % (11.5-14.5); RDW Standard Deviation 43.4 fL (36.4-46.3); Red Blood Count 3.44 M/uL (4.20-5.40); White Blood Count 14.32 K/ul (4.8-10.8)
[2023-04-03 11:53] LABS: Albumin Globulin Ratio 1.2 (0.9-2); Albumin Level 3.4 gm/dl (3.4-5.0); BUN Creatinine Ratio 22.9 (10-20); Bilirubin,Total 1.4 mg/dl (0.2-1.0); Calcium 8.6 mg/dl (8.6-10.3); Creatinine Clr Calc Pharmacy 39.4 ml/min; Est GFR (African American) 79.4 ml/min; Est GFR (Non-African American) 68.5 ml/min; Globulin 2.8 gm/dl (2.5-4.0); Magnesium 1.9 mg/dl (1.7-2.4); Potassium 3.9 mmol/L (3.5-5.1); Total Protein 6.2 gm/dl (6.0-8.3)
--- NOTE | 2023-04-03 19:29 | History & Physical Bridge Note ---
Date of Service April 03, 2023 History & Physical Bridge Note I have examined the patient, reviewed the History & Physical and in the interval since the performance of the History & Physical I have noted the following changes of clinical significance: Pt having some pain in right anterior lower rib area. ALso noticing pain in her left dorsal foot and having trouble putting pressure on it. No h/o gout. Not coughing much. Is eating and drinking today, remains on 2LNC Vitals reviewed tele with NSR normal rates NAD, alert awake oriented x2 RRR no mgr lung swith diminished BS at right base, +crackles right base, no wheezes Abd +BS soft NT ND Ext +TTP over left dorsal foot, no erythema, 2+ DP pulse, FROM of ankle, can wiggle toes, sensation intact, no edema Continue current abx for PNA Added on repeat troponin given elevation of the first-mildly elevated at 14/17- demand ischemia from PNA, hypoxia, not ACS wean off O2 as able tylenol for rib pain which is likely pleuritic pain from PNA check xray left foot given fall discussed care at bedside with her niece, Nicole, who is a nurse here
[2023-04-03] MEDS: ACETAMINOPHEN 325 MG TAB PO PRN (19:43)
[2023-04-03] MEDS: AZITHROMYCIN 500 MG in DEXTROSE 5% 250 ML IV SCH (20:54)
[2023-04-03] MEDS: DICLOFENAC SOD 1% GEL 100 GM TUBE EXT SCH (20:55)
--- NOTE | 2023-04-04 05:37 | Electrocardiogram Report ---
Test Reason : Blood Pressure : / mmHG Vent. Rate : 084 BPM Atrial Rate : 084 BPM P-R Int : 132 ms QRS Dur : 084 ms QT Int : 366 ms P-R-T Axes : 075 078 072 degrees QTc Int : 432 ms Sinus rhythm with Premature supraventricular complexes Minimal voltage criteria for LVH, may be normal variant ( Sokolow-Card ) Nonspecific ST abnormality Abnormal ECG When compared with ECG of 21-MAR-2021 08:44, Sinus rhythm has replaced Electronic atrial pacemaker Confirmed by Gabriel Dean ([id number]) on 04/04/2023 5:37:20 AM Referred By: REFERRED SELF Confirmed By:Gabriel Dean
[2023-04-04] MEDS: LEVOTHYROXINE SODIUM 75 MCG TABLET PO SCH (06:13)
[2023-04-04 07:15] LABS: Basophils # (auto) 0.04 K/uL (0.00-0.20); Basophils % (auto) 0.4 %; Eosinophils # (auto) 0.39 K/uL (0.00-0.50); Eosinophils % (auto) 3.7 %; Hematocrit (blood only) 34.7 % (37.0-47.0); Hemoglobin 11.3 g/dl (12.0-16.0); Immature Granulocytes # (auto) 0.07 K/uL (0.01-0.20); Immature Granulocytes % (auto) 0.7 %; Lymphocytes # (auto) 0.67 K/uL (1.20-3.40); Lymphocytes % (auto) 6.4 %; Mean Corpuscular Hemoglobin 32.2 pg (25.0-34.0); Mean Corpuscular Hgb Conc 32.6 g/dL (32.0-36.0); Mean Corpuscular Volume 98.9 fL (80.0-100.0); Mean Platelet Volume 10.3 fL (9.4-12.4); Monocytes % (auto) 8.6 %; Neutrophils # (auto) 8.34 K/uL (1.40-6.50); Neutrophils % (auto) 80.2 %; Platelet Count 203 K/uL (130-400); RDW Coefficient of Variation 12.3 % (11.5-14.5); RDW Standard Deviation 44.6 fL (36.4-46.3); Red Blood Count 3.51 M/uL (4.20-5.40); White Blood Count 10.41 K/ul (4.8-10.8)
--- NOTE | 2023-04-04 07:40 | XRay Report ---
XR foot LT min 3V routine CLINICAL HISTORY: fall, dorsal foot pain,r/o fracture. Left foot pain. COMPARISON STUDY: Left foot 04/14/2022. FINDINGS: The bones are osteopenic. No acute fracture or dislocation within the left foot. Mild degen erative changes within the left foot. Periarticular calcifications at the MTP joints again noted. Thi s is likely chronic. No erosive changes. The Lisfranc joint is intact. There are plantar and posterio r calcaneal spurs. IMPRESSION: No fracture or dislocation within the left foot. ACT 112: Negative or not required by law. Electronically signed by: Saul Baxter M.D. 04/04/2023 7:38 AM
[2023-04-04 07:51] LABS: BUN Creatinine Ratio 28.4 (10-20); Calcium 8.8 mg/dl (8.6-10.3); Creatinine Clr Calc Pharmacy 44.2 ml/min; Est GFR (African American) 91.2 ml/min; Est GFR (Non-African American) 78.7 ml/min; Magnesium 2.1 mg/dl (1.7-2.4); Potassium 3.8 mmol/L (3.5-5.1)
--- NOTE | 2023-04-04 16:26 | Hospitalist Progress Note ---
Date of Service April 04, 2023 Assessment & Plan (1) Pneumonia: Plan: Patient without any respiratory symptoms of pneumonia except some pleuritic pain in right lower chest wall. She has been feeling weak which may be result of pneumonia. Chest x-ray showed a right lower lobe pneumonia. Leukocytosis seen on CBC and now resolved Requiring 2LNC continuously-continue and wean off as able to -continue cefepime (due to PCN allergy, less likely to cross react than c eftriaxone) and azithro -add flutter valve, continue ICS -follow CXR to resolution in 4-6 weeks as outpt -tylenol as needed for pleuritis pain -follow BCXs-NGTD (2) History of pacemaker: Plan: for SSS no events on tele can dc tele (3) Paroxysmal atrial fibrillation: Plan: -Not on any anticoagulation. In sinus on tele (4) COPD (chronic obstructive pulmonary disease): Plan: -Continue home inhalers (5) Hypothyroidism: Plan: TSH 4.6 in Nov 2022 continue home LT4 dose (6) Hypertension: Plan: BPs controlled to mildly elevated Continue losartan (7) Fall: Plan: fall from weakness, down onto her bottom with legs underneath xrays of hips/pelvis negative left foot dorsal pain--> xrays neg for fracture tylenol prn pain PT recommends home with home health, OT recommends rehab Plan DVT ppx: Lovenox Dispo:downgrade off tele, improving, possible dc to home with home health in 1-2 days Admission and Anticipated Discharge Date Admission Date: April 03, 2023 Subjective Pt reports ongoing pain in right lower chest but knows this is from her pneumonia. Otherwise, left foot pain is somewhat improved. Is moving bowels, eating. Ambulated with PT. Tele with NSR rates 60-70s Physical Exam Constitutional: WD/WN, vitals as above Respiratory: normal respiratory effort; no cough Auscultation: + crackles (right lower and middle lung narayanan); no rhonchi and no wheezes Cardiovascular: RRR, no murmur, no edema Gastrointestinal (Abdomen): normal bowel sounds, soft, nontender, no hepatosplenomegaly Musculoskeletal: Extremities: extremities normal to inspection (left dorsal foot mild +TTP) Psychiatric: A+Ox3, euthymic affect Results & Data Results & Data Vital Signs (Past 12 Hours) Vital Signs Temp Pulse Pulse Resp BP Pulse Ox O2 Del Method 04/04/23 15:04 36.9 C 60 18 151/52 H 96 Nasal Cannula 04/04/23 14:02 65 04/04/23 11:59 36.8 C 60 18 122/67 97 Nasal Cannula 04/04/23 08:01 Room Air 04/04/23 07:39 36.8 C 63 18 128/65 95 Room Air 04/04/23 05:59 70 Laboratory Results CBC,BMP, magnesium, and blood cultures reviewed PG Care Time/CCT Total # of Minutes Spent Total Time Spent with Patient: Total time spent is greater than 50% in coordination of care (as documented) at patient's floor/unit and/or counseling patient: Coding Level of Care Code 35844 SUB INP/OBS CARE 235MIN Diagnoses Pneumonia J18.9 Laterality: right Lung location: lower lobe of lung Pneumonia type: due to unspecified organism History of pacemaker Z95.0 Paroxysmal atrial fibrillation I48.0 COPD (chronic obstructive pulmonary disease) J44.9 Hypothyroidism E03.9 Hypertension I10 Fall W19.XXXA Encounter type: initial encounter (1) Pneumonia Laterality: right Lung location: lower lobe of lung Pneumonia type: due to unspecified organism Qualified Code(s): J18.9 - Pneumonia, unspecified organism (7) Fall Encounter type: initial encounter Qualified Code(s): W19.XXXA - Unspecified fall, initial encounter
[2023-04-04] MEDS: BRIMONIDINE TARTRATE-P 0.15% 5 ML BTL OP SCH (17:32)
[2023-04-05 07:37] LABS: Basophils # (auto) 0.03 K/uL (0.00-0.20); Basophils % (auto) 0.3 %; Eosinophils % (auto) 4.7 %; Hematocrit (blood only) 33.2 % (37.0-47.0); Hemoglobin 10.8 g/dl (12.0-16.0); Immature Granulocytes # (auto) 0.04 K/uL (0.01-0.20); Immature Granulocytes % (auto) 0.5 %; Lymphocytes # (auto) 0.73 K/uL (1.20-3.40); Lymphocytes % (auto) 8.5 %; Mean Corpuscular Hemoglobin 31.7 pg (25.0-34.0); Mean Corpuscular Hgb Conc 32.5 g/dL (32.0-36.0); Mean Corpuscular Volume 97.4 fL (80.0-100.0); Mean Platelet Volume 10.1 fL (9.4-12.4); Monocytes # (auto) 0.55 K/uL (0.11-0.59); Monocytes % (auto) 6.4 %; Neutrophils # (auto) 6.83 K/uL (1.40-6.50); Neutrophils % (auto) 79.6 %; Platelet Count 220 K/uL (130-400); RDW Standard Deviation 43.4 fL (36.4-46.3); Red Blood Count 3.41 M/uL (4.20-5.40); White Blood Count 8.58 K/ul (4.8-10.8)
[2023-04-05 07:50] LABS: BUN Creatinine Ratio 27.9 (10-20); Calcium 8.7 mg/dl (8.6-10.3); Creatinine Clr Calc Pharmacy 53.6 ml/min; Est GFR (African American) 102.1 ml/min; Est GFR (Non-African American) 88.1 ml/min
--- NOTE | 2023-04-05 16:51 | Hospitalist Progress Note ---
Date of Service April 05, 2023 Assessment & Plan (1) Pneumonia: Plan: Patient without any respiratory symptoms of pneumonia except some pleuritic pain in right lower chest wall. She has been feeling weak which may be result of pneumonia. Chest x-ray showed a right lower lobe pneumonia. Leukocytosis seen on CBC and now resolved Requiring 2LNC continuously on admission and now weaned to room air, improved Lungs sound better -treated with cefepime (due to PCN allergy, less likely to cross react than ceftriaxone) and azithro--> convert to po Levaquin to finish a 7 day course on 04/08 -continue flutter valve, ICS -follow CXR to resolution in 4-6 weeks as outpt -tylenol as needed for pleuritic pain -follow BCXs-remain NGTD (2) History of pacemaker: Plan: for SSS no events on tele-have since removed from tele (3) Paroxysmal atrial fibrillation: Plan: -Not on any anticoagulation. In sinus on tele and on exam (4) COPD (chronic obstructive pulmonary disease): Plan: -Continue home inhalers (5) Hypothyroidism: Plan: TSH 4.6 in Nov 2022 continue home LT4 dose (6) Hypertension: Plan: BPs controlled Continue losartan (7) Fall: Plan: fall from weakness, down onto her bottom with legs underneath xrays of hips/pelvis negative left foot pain--> xrays neg for fracture; pain now seems to be mostly in plantar arch and heel--> suspect plantar fasciitis-recommend icing and stretching of foot, f/u as outpt if persists tylenol prn pain PT recommends home with home health, OT recommends rehab Plan DVT ppx: Lovenox Dispo: improving, dc to home with home health tomorrow if continues to do well Discussed care with her niece, Nicole, on the phone on 04/05 Admission and Anticipated Discharge Date Admission Date: April 03, 2023 Subjective Pt still c/o left foot pain in instep worse with putting weight on her foot. Still some right lower rib pain, no cough or SOB. Physical Exam Constitutional: WD/WN, vitals as above Respiratory: normal respiratory effort; no cough Auscultation: + crackles (right lower lung narayanan); no rhonchi and no wheezes Cardiovascular: RRR, no murmur, no edema Gastrointestinal (Abdomen): normal bowel sounds, soft, nontender, no hepatosplenomegaly Musculoskeletal: Extremities: extremities normal to inspection (left fo heel and instep +TTP) Psychiatric: A+Ox3, euthymic affect Results & Data Results & Data Vital Signs (Past 12 Hours) Vital Signs Temp Pulse Resp BP Pulse Ox O2 Del Method 04/05/23 15:25 37.3 C 77 18 113/60 94 Room Air 04/05/23 07:16 36.9 C 69 14 133/68 90 Room Air Laboratory Results CBC, BMP, BCxs reviewed PG Care Time/CCT Total # of Minutes Spent Total Time Spent with Patient: Total time spent is greater than 50% in coordination of care (as documented) at patient's floor/unit and/or counseling patient: Coding Level of Care Code 34833 SUB INP/OBS CARE 235MIN Diagnoses Pneumonia J18.9 Laterality: right Lung location: lower lobe of lung Pneumonia type: due to unspecified organism History of pacemaker Z95.0 Paroxysmal atrial fibrillation I48.0 COPD (chronic obstructive pulmonary disease) J44.9 Hypothyroidism E03.9 Hypertension I10 Fall W19.XXXA Encounter type: initial encounter (1) Pneumonia Laterality: right Lung location: lower lobe of lung Pneumonia type: due to unspecified organism Qualified Code(s): J18.9 - Pneumonia, unspecified organism (7) Fall Encounter type: initial encounter Qualified Code(s): W19.XXXA - Unspecified fall, initial encounter
[2023-04-05] MEDS: levoFLOXacin 750 MG TAB PO SCH (20:12)
[2023-04-06 06:38] LABS: Basophils # (auto) 0.04 K/uL (0.00-0.20); Basophils % (auto) 0.4 %; Eosinophils # (auto) 0.44 K/uL (0.00-0.50); Eosinophils % (auto) 4.7 %; Hematocrit (blood only) 34.9 % (37.0-47.0); Hemoglobin 11.3 g/dl (12.0-16.0); Immature Granulocytes # (auto) 0.08 K/uL (0.01-0.20); Immature Granulocytes % (auto) 0.9 %; Lymphocytes # (auto) 0.86 K/uL (1.20-3.40); Lymphocytes % (auto) 9.2 %; Mean Corpuscular Hemoglobin 31.7 pg (25.0-34.0); Mean Corpuscular Hgb Conc 32.4 g/dL (32.0-36.0); Mean Corpuscular Volume 97.8 fL (80.0-100.0); Mean Platelet Volume 10.1 fL (9.4-12.4); Monocytes # (auto) 0.59 K/uL (0.11-0.59); Monocytes % (auto) 6.3 %; Neutrophils # (auto) 7.35 K/uL (1.40-6.50); Neutrophils % (auto) 78.5 %; Platelet Count 257 K/uL (130-400); RDW Coefficient of Variation 11.9 % (11.5-14.5); RDW Standard Deviation 43.4 fL (36.4-46.3); Red Blood Count 3.57 M/uL (4.20-5.40); White Blood Count 9.36 K/ul (4.8-10.8)
[2023-04-06 06:51] LABS: BUN Creatinine Ratio 24.2 (10-20); Calcium 9.1 mg/dl (8.6-10.3); Creatinine Clr Calc Pharmacy 49.6 ml/min; Est GFR (African American) 99.5 ml/min; Est GFR (Non-African American) 85.8 ml/min
--- NOTE | 2023-04-06 12:26 | Discharge Summary ---
Discharge Summary Date of Service April 06, 2023 Notes For Next Care Provider Needs repeat CXR in 3-4 weeks Medication Changes From Visit Levaquin 750mg po daily x 3 days Admission HPI Per Admitting Provider The patient is a 77-year-old female with history of paroxysmal atrial fibrillation, sick sinus syndrome status post pacemaker placement, COPD, pr esents to the hospital after a mechanical fall. Patient states that she was trying to get up from a chair and that the carpet slipped underneath her and she fell down on her buttocks. Patient states that she had trouble getting up from that position and contacted EMS. Patient also states that she had some sore throat but no cough recently. Talk to niece who was bedside who states that when she found the patient she seemed confused but that has improved since being in the hospital. Patient denies any chest pain at this time though it was mentioned in the EMS that she had some chest pain. Denies any pain throughout her body. Denies any cough or congestion recently. Denies any urinary issues. States that she does have asthma and emergency however which she used prior to coming to the hospital. In the ED: Leukocytosis seen on CBC. Flu, RSV, and COVID negative. Hip and pelvis x-ray taken, chest x-ray showing right lower lobe pneumonia. Principal Dx & Hospital Course #1 = Principal Diagnosis (1) Pneumonia: Patient without any respiratory symptoms of pneumonia except some pleuritic pain in right lower chest wall. She has been feeling weak which may be result of pneumonia. Chest x-ray showed a right lower lobe pneumonia. Leukocytosis seen on CBC and now resolved Requiring 2LNC continuously on admission and now weaned to room air, improved Lungs sound better -treated with cefepime (due to PCN allergy, less likely to cross react than ceftriaxone) and azithro--> converted to po Levaquin to finish a 7 day course on 04/08-has allergy listed to Cipro but tolerating Levaquin without problems -continue flutter valve, ICS after discharge -follow CXR to resolution in 4 weeks as outpt -tylenol as needed for pleuritic pain-improving -follow BCXs-remain NGTD (2) History of pacemaker: for SSS no events on tele-have since removed from tele (3) Paroxysmal atrial fibrillation: -Not on any anticoagulation. In sinus on tele and on exam (4) COPD (chronic obstructive pulmonary disease): -Continue home inhalers (5) Hypothyroidism: TSH 4.6 in Nov 2022 continue home LT4 dose (6) Hypertension: BPs controlled Continue losartan (7) Fall: fall from weakness, down onto her bottom with legs underneath xrays of hips/pelvis negative left foot pain--> xrays neg for fracture; pain now seems to be mostly in plantar arch and heel--> suspect plantar fasciitis-recommend icing and stretching of foot, f/u as outpt if persists tylenol prn pain PT recommends home with home health, OT recommends rehab Plan DVT ppx: Lovenox Dispo: improving, dc to home with home health today Discussed care with her nieceNicole, on the phone on 04/05 and with niece, Juan on hpone on 04/06 Discharge Exam Constitutional WD/WN, vitals as above Respiratory normal respiratory effort; no cough Auscultation: + crackles (right lower lung narayanan); no rhonchi and no wheezes Cardiovascular RRR, no murmur, no edema Gastrointestinal (Abdomen) normal bowel sounds, soft, nontender, no hepatosplenomegaly Musculoskeletal Extremities: extremities normal to inspection (left fo heel and instep +TTP) Psychiatric A+Ox3, euthymic affect Updated Medication List Medication Instructions Recorded Confirmed Type aspirin 81 mg tablet,delayed 81 mg PO QAM 10/12/18 04/02/23 History release posture cane #1 ea 09/27/20 03/25/23 Rx tiotropium bromide 18 mcg capsule 1 cap inhalation DAILY 02/21/22 04/02/23 History with inhalation device (Spiriva with HandiHaler) calcium carbonate 600 mg calcium 600 mg PO Q OTHER DAY 07/06/22 04/02/23 History (1,500 mg) tablet rxhlormr-agth-hccw 8 mg-folic 400 1 tab PO Q OTHER DAY 07/06/22 04/02/23 History mcg-K 50 mcg-lutein 300 mcg tablet (Centrum Silver Women) cetirizine 10 mg tablet 10 mg PO DAILY #90 tabs 12/26/22 04/02/23 Rx fluticasone propionate 50 2 spray intranasal DAILY #48 grams 12/26/22 04/02/23 Rx mcg/actuation nasal spray,suspension (Flonase Allergy Relief) albuterol sulfate 90 mcg/actuation See Rx Instructions inhalation 01/08/23 04/02/23 Rx aerosol inhaler (Ventolin HFA) .COMPLEX PRN shortness of breath or wheezing #18 grams brimonidine 0.15 % eye drops 1 drp ophthalmic (eye) TID 02/07/23 04/02/23 History fluticasone furoate 100 1 inh inhalation DAILY 02/07/23 04/02/23 History mcg-vilanterol 25 mcg/dose inhalation powder (Breo Ellipta) losartan 100 mg tablet 100 mg PO DAILY 02/07/23 04/02/23 History betamethasone dipropionate 0.05 % 1 applic topical BID #15 grams 03/25/23 04/02/23 Rx topical cream levothyroxine 50 mcg tablet 50 mcg PO Q OTHER DAY 04/02/23 04/02/23 History levothyroxine 75 mcg tablet 75 mcg PO Q OTHER DAY 04/02/23 04/02/23 History levofloxacin 750 mg tablet 750 mg PO QPM #3 tabs 04/06/23 Rx Hospital Stay Data Consultations 04/03/23 00:34 ED Decision to Admit Stat Pending Results Patient Have Any Pending Studies at Discharge: Yes (Final blood cultures results-no growth to date) Discharge Instructions Given to Patient (Per Discharging Provider) Please finish out 3 more days of the antibiotic called levofloxacin 750mg daily in the evening for your pneumonia. You should have a repeat chest xray in 3-4 weeks to ensure the pneumonia is cleared. For your left foot pain, continue rolling your foot over a cold soda can 3-4 times per day and stretch the bottom of the foot. Follow up with your PCP for this if it persists. Total Time Total Time Spent Total Time Spent (In Minutes): 35 min Coding Level of Care Code 12868 INP/OBS DISCH >30 MIN Diagnoses Pneumonia J18.9 Laterality: right Lung location: lower lobe of lung Pneumonia type: due to unspecified organism History of pacemaker Z95.0 Paroxysmal atrial fibrillation I48.0 COPD (chronic obstructive pulmonary disease) J44.9 Hypothyroidism E03.9 Hypertension I10 Fall W19.XXXA Encounter type: initial encounter
== END 2023-04-06 15:37 | disposition home health service (06) | DRG 194 ==
LOC: ED 22:13 → EDINP 04-03 01:11 → SUATTDRO 04-03 01:11 → 2S 04-03 08:04 → 3N 04-04 21:32